=== PATIENT | female | born 1970 | race Native Hawaiian/Other Pacific Islander ===

== ENCOUNTER 2019-07-30 14:47 | Outpatient (CLI) | payer BC | END 2019-07-30 20:15 | disposition home or self-care (01) | LOC: MAMMO 14:47 | DX: Z12.31 Encounter for screening mammogram for malignant neoplasm of breast (principal) ==

== ENCOUNTER 2020-12-28 15:30 | Outpatient (CLI) | payer BC | END 2020-12-28 22:40 | disposition home or self-care (01) | LOC: MAMMO 15:30 | PROVIDERS: ATTEND Obstetrics & Gynecology | DX: Z12.31 Encounter for screening mammogram for malignant neoplasm of breast (principal) ==

== ENCOUNTER 2021-09-10 16:26 | Emergency (ER) | payer BC ==
[~2021-09-10] VITALS: Ht 167.6 cm; Wt 65.8 kg
[2021-09-10] MEDS ORDERED: PEPCID20 MG PO (20:18)
[2021-09-10] MEDS ORDERED: PRED20TA27 PO (20:18)
[2021-09-10] MEDS ORDERED: CEPH500C20 PO (20:18)
[2021-09-10 20:25] VITALS: BP 146/88; TEMP 98
== END 2021-09-10 20:25 | disposition home or self-care (01) ==
LOC: ED 16:26
DX: T78.49XA Other allergy, initial encounter (principal); L03.114 Cellulitis of left upper limb; X58.XXXA Exposure to other specified factors, initial encounter; Y92.89 Other specified places as the place of occurrence of the external cause
CPT/HCPCS: 90472; 90715; 96365; 96372; 96375; 99283; J0171; J0696; J1200; J2930

== ENCOUNTER 2022-04-09 09:31 | Outpatient (CLI) | payer BC ==
[~2022-04-09 09:31] MED LIST: CEPH500C20 PO; PEPCID20 MG PO; PRED20TA27 PO
== END 2022-04-09 20:11 | disposition home or self-care (01) ==
LOC: MAMMO 09:31
PROVIDERS: ATTEND Nurse Practitioner Family
DX: Z12.31 Encounter for screening mammogram for malignant neoplasm of breast (principal)